=== PATIENT | male | born 1950 | race Caucasian/White ===

== ENCOUNTER 2020-04-11 18:41 | Inpatient (IN) | payer MEDICARE ==
[~2020-04-11] VITALS: Ht 182.9 cm; Wt 89.4 kg
[2020-04-11 18:43] VITALS: BP 166/97
[2020-04-11] MEDS ORDERED: METFORMIN HCL500 M3 PO (18:45)
[2020-04-11] MEDS ORDERED: LISINOPRIL2.5 MG (18:45)
[2020-04-11 19:15] LABS: HEMATOCRIT 33.4 % (42.0-52.0); HEMOGLOBIN 11.2 gm/dL (14.0-18.0); MCH 31.7 pg (26.0-34.0); MCHC 33.5 g/dL (28.0-37.0); MCV 94.6 fL (80.0-100.0); MPV 9.3 fl. (7.2-11.1); NUCLEATED RBCS 0 /100WBC; PLATELET COUNT* 238 thou/uL (150-400); RBC 3.53 mil/uL (4.50-6.00); RDW-CV 12.8 % (10.5-14.5); WBC 34.3 thou/uL (4.0-11.0)
[2020-04-11 19:24] LABS: CALCIUM 9.6 mg/dL (8.5-10.1); CREATININE 1.4 mg/dL (0.6-1.3); POTASSIUM 5.2 mmol/L (3.5-5.1)
[2020-04-11 19:27] LABS: APTT 26.2 Seconds (25.0-31.3); INR 1.1; PROTIME 11.8 Seconds (9.20-11.50)
[2020-04-11 19:37] LABS: ALBUMIN 3.2 g/dL (3.4-5.0); TOTAL BILIRUBIN 0.5 mg/dL (<0.1-1.0); TOTAL PROTEIN 6.2 g/dL (6.4-8.2)
[2020-04-11 19:50] LABS: ABSOLUTE LYMPHOCYTES 1.7 thou/uL (0.8-5.3); ABSOLUTE MONOCYTES 2.4 thou/uL (0.0-1.2); ABSOLUTE NEUTROPHILS 30.2 thou/uL (1.6-8.1); PLATELET ESTIMATE ADEQUATE
[2020-04-11 21:39] LABS: URINE BILIRUBIN NEGATIVE (Negative); URINE BLOOD TRACE (Negative); URINE CLARITY CLEAR; URINE COLOR STRAW; URINE GLUCOSE-RANDOM TRACE (Negative); URINE KETONES NEGATIVE (Negative); URINE LEUKOCYTES-REFLEX NEGATIVE (Negative); URINE NITRITE-REFLEX NEGATIVE (Negative); URINE PROTEIN NEGATIVE (Negative); URINE SPECIFIC GRAVITY <= 1.005 (1.005-1.030); URINE UROBILINOGEN 0.2 E.U./dl (0.2-1.0)
[2020-04-11 23:27] VITALS: BP 163/93
[2020-04-11 23:51] VITALS: BP 114/69
[2020-04-12 03:34] VITALS: BP 145/86
[2020-04-12 06:18] LABS: HEMATOCRIT 22.9 % (42.0-52.0)
[2020-04-12 06:19] LABS: HEMOGLOBIN 7.7 gm/dL (14.0-18.0)
--- NOTE | 2020-04-12 06:36 | NUR ---
PT RECIEVED FROM ED IN ROOM 221. ALERT AND ORIENTED X4. PROTONIX DRIP RUNNING. PT HAVING BLOODY STOOL WITH CLOTS. C/O PAIN, MEDICATION GIVEN PER EMAR. CALL LIGHT WITHIN REACH AND BED IN LOW POSITION. HOURLY ROUNDING DONE FOR PT SAFETY.
[2020-04-12 08:00] VITALS: BP 163/97
--- NOTE | 2020-04-12 09:04 | NUR ---
CM SPOKE TO THE PT TO DISCUSS CM ASSESMMENT. PT A&O, INDEPENDENT WITH ADL'S, AND ACTIVE PRIOR TO ADMIT. PT DRIVES AND STATES 'I DRIVE A KYLE'. PT HAS 0 HX OF HH OR SNF. PT RESIDES AT HOME IN THE BASEMENT LEVEL OF A FRIENDS HOME. CM WILL REMAIN AVAILABLE TO ASSIST AND FOLLOW NEEDED.
--- NOTE | 2020-04-12 10:48 | EKG ---
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
[2020-04-12 14:35] VITALS: BP 146/89; BP 167/88; BP 178/89
--- NOTE | 2020-04-12 18:52 | NUR ---
PT. AOX4, VSS, PAIN AND ANXIETY UNDER CONTROL, CALL LIGHT AND PERSONAL BELONGINGS PLACED WITHIN REACH. ATIVAN WASTE DOCUMENTED INACCURATELY 0.5 MG INSTEAD OF 1.5MG, SPOKE TO CLIFF PHARMACIST, ASKED TO DOCUMENT IN PT. NOTE. PT. RETURNED FROM EGD, CONTINUES TO HAVE SMAL BLOODY STOOLS, 1 UNIT PRBC TRANSFUSED, PT TOLERATED WITHOUT COMPLICATIONS. COLONOSCOPY SCHEDULED FOR TOMORROW, DIET ADVANCED TO CLD. PT. IN BED, WATCHING TV, IN STABLE CONDITION, AT THIS TIME.
[2020-04-12 19:47] LABS: HEMATOCRIT 21.3 % (42.0-52.0); HEMOGLOBIN 7.1 gm/dL (14.0-18.0)
[2020-04-12 20:00] VITALS: BP 178/89
--- NOTE | 2020-04-12 20:23 | NUR ---
YOU CALL MD MESSAGE SENT TO DR POWERS REGARDING HH RESULTS AND BLOODY STOOLS. AWAITING CALL BACK FOR ORDERS. VS 178/89 94 18 SAT 98% ROOM AIR
--- NOTE | 2020-04-12 20:47 | NUR ---
ANSWERING SERVICE EPPS BACK AND TRIED TO CONNECT DIRECTLY WITH , NO ANSWER AT THIS TIME.
--- NOTE | 2020-04-12 21:18 | NUR ---
ANSWERING SERVICE CALLED BACK, TRIED TO CONNECT TO DR POWERS DIRECTLY WITHOUT SUCCESS.
--- NOTE | 2020-04-12 21:37 | NUR ---
DR POWERS RETURNED CALL, INFORMED HIM OF HGB RESULT AND BLOODY STOOLS. ORDERS RECEIVED.
[2020-04-12 22:45] VITALS: BP 161/75; BP 164/76; BP 183/83; BP 183/84; BP 198/79
[2020-04-13 02:18] LABS: HEMATOCRIT 21.1 % (42.0-52.0); HEMOGLOBIN 7.1 gm/dL (14.0-18.0); LYMPHOCYTES 4.7 %; MCH 30.7 pg (26.0-34.0); MCHC 33.7 g/dL (28.0-37.0); MONOCYTES 6.9 %; MPV 8.5 fl. (7.2-11.1); NUCLEATED RBCS 0 /100WBC; POLYS 88.4 %; RBC 2.32 mil/uL (4.50-6.00); RDW-CV 14.9 % (10.5-14.5)
[2020-04-13 02:56] LABS: ABSOLUTE LYMPHOCYTES 0.8 thou/uL (0.8-5.3); ABSOLUTE MONOCYTES 1.2 thou/uL (0.0-1.2); ABSOLUTE NEUTROPHILS 14.9 thou/uL (1.6-8.1); PLATELET COUNT* 91 thou/uL (150-400); WBC 16.9 thou/uL (4.0-11.0)
[2020-04-13 03:07] LABS: ALBUMIN 2.4 g/dL (3.4-5.0); CALCIUM 7.7 mg/dL (8.5-10.1); CREATININE 1.1 mg/dL (0.6-1.3); POTASSIUM 4.2 mmol/L (3.5-5.1); TOTAL BILIRUBIN 0.5 mg/dL (<0.1-1.0); TOTAL PROTEIN 4.8 g/dL (6.4-8.2)
[2020-04-13 03:18] VITALS: BP 178/89
[2020-04-13 04:00] VITALS: BP 143/72
[2020-04-13 04:32] VITALS: BP 135/65; BP 144/69; BP 146/73
--- NOTE | 2020-04-13 07:04 | NUR ---
PT UP FREQUENTLY AT START OF SHIFT WITH BLOODY LIQUID "STOOL", CO BEING TIRED AND WEAK. HGB STABEL OVERNIGHT AT 7.1, 2 UNITS PRBC TRANSFUSED OVERNIGHT- LAB REDRAW DUE AT 0800. STOOL THIS MORNING DARK RED WATERY LIQUID WITH FLECKS, MESSAGE SENT TO GI DR. NICHOLS, ABLE TO USE CALL LITE AND MAKE NEEDS KNOWN. RFA IV AND RAC, PROTONIX DRIP INFUSING, IVF. HAS BEEN NPO SINCE MIDNIGHT FOR COLONOSCOPY TODAY. CONTINUOS PULSE OX ON, SATS HIGH 90"S. BP STABLE. TELE SR.
[2020-04-13 08:00] VITALS: BP 146/77
[2020-04-13 08:36] LABS: HEMATOCRIT 23.4 % (42.0-52.0)
--- NOTE | 2020-04-13 14:05 | CON ---
[address] [address] CONSULTATION Name: STEPHEN TURCIOS Room: [address] IN M.R.#: [id number] Admission: 04/11/20 Attend Phys: Juan Payan MD Discharge: Date of : 54 Report #: [id number] THIS REPORT FOR: //name// cc: NICK - No family physician/PCP FAM - No family physician/PCP ~ DATE OF SERVICE: 04/12/2020 HISTORY OF PRESENT ILLNESS: This is a pleasant 69-year-old male with past medical history significant for diabetes, hypertension and hepatitis C, who is presenting for evaluation of abdominal cramps and diarrhea and bloody stools. The patient reports his symptoms began few days back when he began noticing abdominal cramps. This was followed by episodes of bright red blood per rectum. The patient has had 4 to 5 episodes of bloody stools. He does report associated nausea, no vomiting. He denies any fevers or chills. PAST MEDICAL HISTORY: Hypertension, diabetes. PAST SURGICAL HISTORY: None. SOCIAL HISTORY: The patient smokes marijuana. Denies smoking or alcohol use. FAMILY HISTORY: No history of colon cancer or Rojas-related neoplasia. REVIEW OF SYSTEMS: Comprehensive 10-point review of systems is negative except for what was mentioned in the HPI. PHYSICAL EXAMINATION: VITAL SIGNS: Temperature 36.3, pulse rate 128, respiratory rate 24, blood pressure 114/69, pulse ox 96% on room air. GENERAL: The patient is alert, awake, oriented x 3. HEENT: Pupils are equal, round, reactive to light and accommodation. Mucous membranes are moist. There is no congestion. LUNGS: Clear to auscultation bilaterally. ABDOMEN: Soft. Tenderness in the suprapubic region and left lower quadrant region. EXTREMITIES: Warm, well perfused. There is no edema. LABORATORY DATA: Hemoglobin 11.2, hematocrit 33.4. INR 1.1. Sodium 134, potassium 5.2, chloride 100, bicarbonate 21, BUN 49, creatinine 1.4, total bilirubin 0.5, AST 13, ALT 19 and alkaline phosphatase 75, lipase 54. IMAGING: CT angiography, severe colitis of the distal colon from distal transverse to upper sigmoid colon, likely infectious or inflammatory colitis. ASSESSMENT AND PLAN: A pleasant 69-year-old gentleman with past medical history significant for hypertension, hyperlipidemia and hepatitis C, [place] [address] CONSULTATION Name: STEPHEN TURCIOS Room: [address] IN [facility]#: [id number] Admission: 04/11/20 Attend Phys: Juan aPyan MD Discharge: Date of : 54 Report #: [id number] with bright red blood per rectum. I would recommend getting an EGD to evaluate this, especially there is a history of hepatitis. Hepatitis C. The patient claims he was diagnosed with hepatitis C. I would recommend getting hepatitis labs along with a.m. labs tomorrow. Further recommendations can be based on the above results. Thank you for this consultation. <ELECTRONICALLY SIGNED> By: Davion Palomino MD 04/13/20 1405 1707 1935Davion Palomino MD /nt
--- NOTE | 2020-04-13 15:10 | NUR ---
CM INFORMED DURING PRIME ROUNDING OF THE PLAN OF CARE FOR THE PT INCLUDING PLANNED COLONOSCOPY TODAY. CM WILL REMAIN AVAILABLE TO ASSIST WITH D/C PLANNING.
--- NOTE | 2020-04-13 18:56 | NUR ---
PT. AOX4, HAD COLONOSCOPY TODAY, RESUMED DIET, DENIES PAIN, JOHNNIE MADE AWARE OF HGB PF 8.0 THIS AM. CALL LIGHT AND PERSONAL BELONGINGS PLACED WITHIN REACH. VSS, NS CONTINUOUS RESUMED. PT. IN BED, RESTING WITH EYES CLOSED AT THIS TIME, IN NO APPARENT DISTRESS. FLAGYL DUE, TO BE SENT BY PHARMACY.
[2020-04-13 19:12] LABS: HEMATOCRIT 21.1 % (42.0-52.0); HEMOGLOBIN 7.3 gm/dL (14.0-18.0)
[2020-04-14] VITALS: BP 130/78; BP 145/62
[2020-04-14 03:06] LABS: HEPATITIS B SURFACE AG Negative (Negative)
[2020-04-14 04:00] VITALS: BP 117/54
[2020-04-14 04:50] LABS: ABSOLUTE MONOCYTES 0.6 thou/uL (0.0-1.2); ABSOLUTE NEUTROPHILS 7.9 thou/uL (1.6-8.1); BASOPHILS 0.2 %; EOSINOPHILS 0.1 %; HEMATOCRIT 21.5 % (42.0-52.0); HEMOGLOBIN 7.5 gm/dL (14.0-18.0); LYMPHOCYTES 10.4 %; MCH 31.4 pg (26.0-34.0); MCHC 34.9 g/dL (28.0-37.0); MCV 89.8 fL (80.0-100.0); MONOCYTES 6.3 %; MPV 9.9 fl. (7.2-11.1); NUCLEATED RBCS 0 /100WBC; PLATELET COUNT* 84 thou/uL (150-400); RBC 2.39 mil/uL (4.50-6.00); RDW-CV 16.2 % (10.5-14.5); WBC 9.5 thou/uL (4.0-11.0)
[2020-04-14 05:08] LABS: ALBUMIN 2.2 g/dL (3.4-5.0); CALCIUM 7.9 mg/dL (8.5-10.1); TOTAL BILIRUBIN 0.2 mg/dL (<0.1-1.0); TOTAL PROTEIN 4.7 g/dL (6.4-8.2)
[2020-04-14 05:23] LABS: PREALBUMIN 13.7 mg/dL (18.0-35.7)
[2020-04-14 07:40] VITALS: BP 122/60
--- NOTE | 2020-04-14 10:51 | NUR ---
CM INFORMED DURING PRIME ROUNDING OF THE PLAN OF CARE FOR THE PT INCLUDING PENDING GI CONSULT AND PLANNED TRANSFUSION TODAY FOR LOW HBG. NO D/C PLANNING NEEDS FOR PT, AND PHYSICIAN INFORMS OF PLAN TO D/C PT WHEN GI BLEED IS STABILIZED. CM WILL REMAIN AVAILABLE TO ASSIST AND FOLLOW NEEDED.
[2020-04-14 11:55] VITALS: BP 129/72
[2020-04-14 16:38] VITALS: BP 143/63
[2020-04-14 19:45] VITALS: BP 139/71
[2020-04-15 00:19] VITALS: BP 143/73
[2020-04-15 04:08] VITALS: BP 151/75
[2020-04-15 04:30] LABS: EOSINOPHILS 0.6 %; MCHC 34.4 g/dL (28.0-37.0); NUCLEATED RBCS 0 /100WBC; PLATELET COUNT* 101 thou/uL (150-400); RDW-CV 15.3 % (10.5-14.5)
[2020-04-15 04:32] LABS: ABSOLUTE LYMPHOCYTES 1.1 thou/uL (0.8-5.3); ABSOLUTE MONOCYTES 0.4 thou/uL (0.0-1.2); ABSOLUTE NEUTROPHILS 5.1 thou/uL (1.6-8.1); BASOPHILS 0.3 %; HEMATOCRIT 22.4 % (42.0-52.0); HEMOGLOBIN 7.7 gm/dL (14.0-18.0); MCH 31.2 pg (26.0-34.0); MCV 90.8 fL (80.0-100.0); MPV 9.7 fl. (7.2-11.1); POLYS 77.1 %; RBC 2.47 mil/uL (4.50-6.00); WBC 6.6 thou/uL (4.0-11.0)
[2020-04-15 05:02] LABS: ALBUMIN 2.2 g/dL (3.4-5.0); CALCIUM 8.1 mg/dL (8.5-10.1); CREATININE 1.1 mg/dL (0.6-1.3); POTASSIUM 3.9 mmol/L (3.5-5.1); TOTAL BILIRUBIN 0.2 mg/dL (<0.1-1.0); TOTAL PROTEIN 4.9 g/dL (6.4-8.2)
[2020-04-15 07:52] VITALS: BP 156/75
--- NOTE | 2020-04-15 09:17 | NUR ---
ASSUMED CARE OF PT THIS AM AROUND 0715- IMPLEMENTATION SPECIALIST IN PLACE ORDERED, TRACING SR- UPON ASSESSMENT PT NOTED TO BE RESTING IN BED- PT A&O X4- CONT OF B/B- UP AD-ELIZABETH TO BED SIDE COMMODE- LCTA, RESP EVEN AND UN-LABORED- VSS, O2 SAT 98% ON RA- ABD SOFT/ROUND/ TENDER, BS X4 QUADS- LAST BM REPORTED 04/14/20- IV NOTED TO RIGHT FA AND RIGHT AC INTACT AND SL- POOR PO INTAKE NOTED, BS MONITORED ORDERED- PT REPORTS ABD DISCOMFORT 01/09 TO LLQ, PRN TYLENOL GIVEN THIS AM AT 0815, PT REPORTS IMPROVEMENT TO 09/09- CALL LIGHT AND PERSONAL BELONGINGS WITH IN REACH- PT MAKES NEEDS KNOWN- ALL NEEDS MET AT THIS TIME-WCTM
[2020-04-15] MEDS ORDERED: MIRALAX119 GM PO (10:40)
[2020-04-15] MEDS ORDERED: CIPRO500 MG PO (10:40)
[2020-04-15] MEDS ORDERED: FLAGYL500 M1 PO (10:40)
[2020-04-15] MEDS ORDERED: NEXIUM40 MG PO (10:40)
[2020-04-15] MEDS ORDERED: XANAX 0.25 MG0.25 MG PO (10:42)
[2020-04-15] MEDS ORDERED: PERCOCET 5-3251 EACH PO (10:42)
[2020-04-15 10:51] VITALS: BP 156/75
[2020-04-15 13:56] VITALS: BP 156/75
--- NOTE | 2020-04-17 15:07 | PATH ---
[address] [address] PATHOLOGY RPT PROCEDURE Name: TAMJEAN-PAUL Room: [address] IN M.R.#: [id number] Admission: 04/11/20 Date of : 54 Discharge: 04/15/20 Report #: [id number] Path Case #: [id number] [facility] Accession Number: [id number] . 01 Material submitted: . colon - SIGMOID COLON BIOPSY R/O ISCHEMIC COLITIS. Modifiers: sigmoid . 01 Clinician provided ICD-10: K92.9 R65.11 . 01 Clinical history: . GI BLEED WITH HEMATEMESIS/COLITIS, ELEVATED BLOOD SUGAR SA,E . 02 Diagnosis: Sigmoid colon biopsy, rule out ischemic colitis: Suggestive of ischemic colitis, negative for granulomas, viral inclusions and dysplasia. See comment. (ALIZA:reji; 04/17/2020) [facility] 04/17/2020 1131 Local . 02 Comment: There is no recognizable viable colonic mucosa but instead abundant fibrin inflammatory hemorrhagic debris with the necrotic probable "ghosts" of colonic crypts and a small fragment of recognizable smooth muscle noted to have a small capillary with a hyaline thrombus in it. Hyaline thrombi are also noted in small vessels in association with suspected necrotic crypt "ghosts". (ALIZA:svp chief marketing officer; 04/17/2020) . 02 Electronically signed: . Hakan Contreras MD, Pathologist NPI- [id number] . 01 Gross description: . The specimen is received in formalin, labeled "Jean-Paul Turcios, sigmoid colon biopsy, R/O ischemic colitis". Received is a segment of light brown soft tissue measuring 0.4 cm in maximum dimensions. The specimen is submitted entirely in cassette A1. ([facility]; 04/14/2020) QA/[facility] 04/14/2020 1502 Local . 02 Pathologist provided ICD-10: K92.9, R65.11 . 02 CPT . [id number] [place] [address] PATHOLOGY RPT PROCEDURE Name: JEAN-PAUL TURCIOS Room: [address] IN M.R.#: [id number] Admission: 04/11/20 Date of : 54 Discharge: 04/15/20 Report #: [id number] Path Case #: [id number] Specimen Comment: A courtesy copy of this report has been sent to [phone] Specimen Comment: [phone] Specimen Comment: Report sent to / DR CAMPOS Performed at: [address], [place], [place] [id number] MD Destin Bassett MD Phone: [phone] Performed at: 02 [facility] [address], [place], [place] [id number] MD Hakan Contreras MD Phone: [phone]
== END 2020-04-15 13:55 | disposition home or self-care (01) | DRG 393 ==
LOC: EDBD 18:41 → M.ERS 18:41 → M.2W 22:01 → M.TBA-ER 22:01 → M.2W 23:25
PROVIDERS: Family Medicine; Internal Medicine; Internal Medicine Gastroenterology; Surgery; ADMIT Internal Medicine; ATTEND Internal Medicine
PROC: 0DBN8ZX Excision of Sigmoid Colon, Via Natural or Artificial Opening Endoscopic, Diagnostic (ICD-10-PCS; principal; 2020-04-12)
PROC: 30233N1 Transfusion of Nonautologous Red Blood Cells into Peripheral Vein, Percutaneous Approach (ICD-10-PCS; 2020-04-13)
PROC: 0W3P8ZZ Control Bleeding in Gastrointestinal Tract, Via Natural or Artificial Opening Endoscopic (ICD-10-PCS; 2020-04-13)
DX: K55.039 Acute (reversible) ischemia of large intestine, extent unspecified (principal); R65.11 Systemic inflammatory response syndrome (SIRS) of non-infectious origin with acute organ dysfunction; K27.4 Chronic or unspecified peptic ulcer, site unspecified, with hemorrhage; K92.1 Melena; D62 Acute posthemorrhagic anemia; N17.9 Acute kidney failure, unspecified; E87.1 Hypo-osmolality and hyponatremia; K92.0 Hematemesis; I10 Essential (primary) hypertension; E78.5 Hyperlipidemia, unspecified; K52.9 Noninfective gastroenteritis and colitis, unspecified; F41.9 Anxiety disorder, unspecified; E87.5 Hyperkalemia; E11.65 Type 2 diabetes mellitus with hyperglycemia; Z20.828 Contact with and (suspected) exposure to other viral communicable diseases; Z79.899 Other long term (current) drug therapy; Z79.84 Long term (current) use of oral hypoglycemic drugs